=== PATIENT | female | born 1975 | race Caucasian/White ===

== ENCOUNTER → 2018-10-13 | Outpatient (CLI) | payer OTHER ==
[~2018-10-13] MED LIST: CIPRO500 MG PO; IOPAMIDOL 610MG/1ML 300 MG/ML VIAL IV ONE; MYRBETRIQ25 MG PO; NABUMETONE500 MG PO; PROGESTERONE100 MG PO; [UNRECOGNIZED DRUG - OTHER] PO
[2018-10-13 14:11] LABS: BASOPHILS # (AUTO) 0.1 (0.0-0.1); BASOPHILS % 0.5 % (0.0-1.0); EOSINOPHILS # (AUTO) 0.3 (0.0-0.4); EOSINOPHILS % 2.4 % (0.0-6.0); HEMATOCRIT 38.4 % (34.2-44.1); HEMOGLOBIN 12.6 g/dL (12.0-16.0); LYMPHOCYTES # (AUTO) 1.7 (1.0-3.2); LYMPHOCYTES % 15.3 % (18.0-39.1); MEAN CORPUSCULAR HEMOGLOBIN 28.3 pg (28-32); MEAN CORPUSCULAR HGB CONC 32.8 g/dL (31-35); MEAN CORPUSCULAR VOLUME 86.1 fL (81-99); MONOCYTES # (AUTO) 0.6 (0.2-0.8); MONOCYTES % 5.5 % (4.4-11.3); NEUTROPHILS # (AUTO) 8.4 (2.1-6.9); NEUTROPHILS % 75.9 % (38.7-80.0); PLATELET COUNT 296 x10e3/uL (140-360); RED BLOOD COUNT 4.46 x10e6/uL (3.6-5.1); RED CELL DISTRIBUTION WIDTH 13.9 % (11.7-14.4)
[2018-10-13 14:21] LABS: INR 0.98; PROTHROMBIN TIME 13.5 seconds (11.9-14.5)
--- NOTE | 2018-10-13 14:25 | Diagnostic Imaging Report ---
EXAMINATION: CT of the abdomen and pelvis without contrast. TECHNIQUE: Spiral CT images of the abdomen and pelvis were performed from the lung bases to the lesser trochanters. No intravenous contrast was given per renal stone protocol. Coronal and sagittal reformatted images were obtained. COMPARISON: None. CLINICAL HISTORY:History of right renal stones x20 years DISCUSSION: ABSENCE OF INTRAVENOUS CONTRAST DECREASES SENSITIVITY FOR DETECTION OF FOCAL LESIONS AND VASCULAR PATHOLOGY. ABDOMEN/PELVIS: LOWER THORAX: Left breast implant partially visualized. Subsegmental atelectasis in the dependent lower lobes left greater than right. HEPATOBILIARY:No focal hepatic lesions. No biliary ductal dilation. The gallbladder is normal. SPLEEN: No splenomegaly. PANCREAS: No focal masses or ductal dilatation. ADRENALS: No adrenal nodules. KIDNEYS/URETERS: Nonobstructing interpolar and lower pole calculi on the left, measuring up to 7 mm. Punctate nonobstructing right lower pole renal calculus. Mild right hydroureter without significant hydronephrosis secondary to a 4-5 mm distal ureteral calculus seen on series 3 image 151. Mild perinephric fat stranding (series 3 image 97). No gross renal mass lesion. PELVIC ORGANS/BLADDER: The urinary bladder is collapsed and poorly evaluated. The uterus is neutral in position and appears normal. No adnexal mass. PERITONEUM/RETROPERITONEUM: No ascites or pneumoperitoneum. LYMPH NODES: No pelvic sidewall, retroperitoneal, or mesenteric lymphadenopathy. VESSELS: Limited evaluation without intravenous contrast. The abdominal aorta is nonaneurysmal. GI TRACT: The large bowel shows no distention or wall thickening. The distal sigmoid colon and descending colon are collapsed and poorly evaluated. The appendix is normal. There is no small bowel dilatation to suggest obstruction. BONES AND SOFT TISSUES: No osseous destructive lesions. No focal soft tissue abnormalities. IMPRESSION: 4-5 mm distal right ureteral calculus results in mild hydroureter and perinephric inflammation but no significant hydronephrosis. Bilateral nonobstructing renal calculi as above. Signed by: Dr. Dileep Adame M.D. on 10/13/2018 2:22 PM
[2018-10-13 14:28] LABS: ANION GAP 12.5 mmol/L (8-16); BLOOD UREA NITROGEN 8 mg/dL (7-26); BUN/CREATININE RATIO 10 (6-25); CALCIUM 9.9 mg/dL (8.4-10.2); CARBON DIOXIDE 26 mmol/L (22-29); CHLORIDE 99 mmol/L (98-107); CREATININE, SERUM 0.79 mg/dL (0.57-1.11); EST GLOMERULAR FILTRATION RATE > 60 ML/MIN (60-); GLUCOSE 111 mg/dL (74-118); POTASSIUM 3.5 mmol/L (3.5-5.1); SODIUM 134 mmol/L (136-145)
== END ==
LOC: CT 13:09
PROVIDERS: ATTEND Specialist
DX: R10.11 Right upper quadrant pain (principal); M54.5 Low back pain; N20.0 Calculus of kidney
CPT/HCPCS: 36415; 74176; 80048; 85025; 85610

== ENCOUNTER → 2018-10-14 | Day surgery (SDC) | payer OTHER ==
[~2018-10-14] MED LIST changes: +ACETAMINOPHEN 1000 MG/100 ML 100 ML IV ONE; +FENTANYL CITRATE/PF 100MCG/2 ML INJ ONE; -IOPAMIDOL 610MG/1ML 300 MG/ML VIAL IV ONE; +KETOROLAC TROMETHAMINE 30 MG/ML VIAL ONE; +LABETALOL HCL 5 MG/ML 20ML VIAL ONE; +LEVOFLOXACIN 500MG/D5W 100ML 100 ML IV ONE; +LIDOCAINE HCL 2% LOCAL INJ 5 ML SDV VIAL INJ ONE; +METOCLOPRAMIDE HCL 10 MG/2ML VIAL ONE; +ONDANSETRON HCL INJ 2MG/ML 2ML 2 MG/ML VIAL ONE; +PROMETHAZINE HCL (IM) 25 MG/ML VIAL ONE; +PROPOFOL IV EMULSION 10 MG/ML 20 ML VIAL ONE; +SEVOFLURANE INHAL SOLN 250 ML PEN BTL ONE
--- OUTSIDE RECORDS SUMMARY | 2018-10-14 09:05 | XMS REPORT ---
[facility] Address Unknown Phone Unavailable Care Team Providers Care Road Maker Name Role Phone Ayse ALONSO Unavailable Unavailable Problems This patient has no known problems. Allergies, Adverse Reactions, Alerts This patient has no known allergies or adverse reactions. Medications This patient has no known medications. Results Test Description Test Time Test Comments Text Results Atomic Results Result Comments CT ABDOMEN/PELVIS WO 2018-10-13 14:10:00 [place] [address] Patient Name: RONNIE JAIMES MR #: [id number] : 1975 Age/Sex: 43/F Req #: [id number] Adm Physician: Ordered by: TERRENCE ALONSO MD Report #: [id number] Location: CT Room/Bed: Procedure: [id number] CT/CT ABDOMEN/PELVIS WO Exam Date: 10/13/18 Exam Time: 1320 REPORT STATUS: Signed EXAMINATION: CT of the abdomen and pelvis without contrast. TECHNIQUE: Spiral CT images of the abdomen and pelvis were performed from the lung bases to the lesser trochanters. No intravenous contrast was given per renal stone protocol. Coronal and sagittal reformatted images were obtained. COMPARISON: None. CLINICAL HISTORY:History of right renal stones x20 years DISCUSSION: ABSENCE OF INTRAVENOUS CONTRAST DECREASES SENSITIVITY FOR DETECTION OF FOCAL LESIONS AND VASCULAR PATHOLOGY. ABDOMEN/PELVIS: LOWER THORAX: Left breast implant partially visualized. Subsegmental atelectasis in the dependent lower lobes left greater than right. HEPATOBILIARY:No focal hepatic lesions. No biliary ductal dilation. The gallbladder is normal. SPLEEN: No splenomegaly. PANCREAS: No focal masses or ductal dilatation. ADRENALS: No adrenal nodules. KIDNEYS/URETERS: Nonobstructing interpolar and lower pole calculi on the left, measuring up to 7 mm. Punctate nonobstructing right lower pole renal calculus. Mild right hydroureter without significant hydronephrosis secondary to a 4-5 mm distal ureteral calculus seen on series 3 image 151. Mild perinephric fat stranding (series 3 image 97). No gross renal mass lesion. PELVIC ORGANS/BLADDER: The urinary bladder is collapsed and poorly evaluated. The uterus is neutral in position and appears normal. No adnexal mass. PERITONEUM/RETROPERITONEUM: No ascites or pneumoperitoneum. LYMPH NODES: No pelvic sidewall, retroperitoneal, or mesenteric lymphadenopathy. VESSELS: Limited evaluation without intravenous contrast. The abdominal aorta is nonaneurysmal. GI TRACT: The large bowel shows no distention or wall thickening. The distal sigmoid colon and descending colon are collapsed and poorly evaluated. The appendix is normal. There is no small bowel dilatation to suggest obstruction. BONES AND SOFT TISSUES: No osseous destructive lesions. No focal soft tissue abnormalities. IMPRESSION: 4-5 mm distal right ureteral calculus results in mild hydroureter and perinephric inflammation but no significant hydronephrosis. Bilateral nonobstructing renal calculi as above. Signed by: Dr. Jem Pringle M.D. on 10/13/2018 2:22 PM Dictated By: JEM PRINGLE MD 1422 Transcribed By: KHLOE on 10/13/18 1422 COPY TO: TERRENCE ALONSO MD
--- OUTSIDE RECORDS SUMMARY | 2018-10-14 09:05 | XMS REPORT | Clinical Summary ---
Author Author [facility] Address Unknown Phone Unavailable Care Team Providers Care Food Mixer Repairer Name Role Phone Jerilyn Daugherty MD PCP Allergies Not on File Medications Not on file Active Problems Not on file Encounters Care Team Description Date Type Specialty Braxton Mera MD Uric acid nephrolithiasis (Primary Dx); Calculus of ureter 10/12/2018 Transcribe Access Orders after 10/13/2017 Social History Date Tobacco Use Types Packs/Day Years Used Never Assessed Sex Assigned at Date Recorded Not on file Industry Job Start Date Occupation Not on file Not on file Not on file Travel End Travel History Travel Start No recent travel history available. Last Filed Vital Signs Not on file Plan of Treatment Health Maintenance Due Date Last Done Comments CERVICAL CANCER SCREENING 1996 INFLUENZA VACCINE 12/31/2018 Procedures Comments Procedure Name Priority Date/Time Associated Diagnosis XR ABDOMEN 1 VW Routine 10/12/2018 Uric acid nephrolithiasis 1:54 PM CDT Calculus of ureter after 10/13/2017 Results * XR Abdomen 1 Vw (10/12/2018 1:54 PM CDT) Narrative Performed At EXAMINATION: XR ABDOMEN 1 VW [facility] INDICATION: N20.0 Calculus of kidney, N20.1 Calculus of ureter, n20.0n20.1 COMPARISON: 04/07/2017 IMPRESSION: Left interpolar calyceal calculus measuring up to 7 x 4 mm. This appears grossly similar. Linear calculus lower pole calyx left kidney measuring 9 x 2 mm, stable. Faint sand-like calcifications involving the lower pole shadow of the right kidney appears similar. No definite calculi along the course of either ureter. Nonspecific bowel gas pattern. 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 Procedure Note Hm Interface, Radiology Results Incoming - 10/12/2018 2:02 PM CDT EXAMINATION: XR ABDOMEN 1 VW INDICATION: N20.0 Calculus of kidney, N20.1 Calculus of ureter, n20.0 n20.1 COMPARISON: 04/07/2017 IMPRESSION: Left interpolar calyceal calculus measuring up to 7 x 4 mm. This appears grossly similar. Linear calculus lower pole calyx left kidney measuring 9 x 2 mm, stable. Faint sand-like calcifications involving the lower pole shadow of the right kidney appears similar. No definite calculi along the course of either ureter. Nonspecific bowel gas pattern. 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 [id number] Performing Organization Address City/State/Zipcode Phone Number [facility] [address] [place] [address] after 10/13/2017 Insurance Payer Benefit Subscriber ID Type Phone Address Plan / Group BCBS BCBS xxxxxxxxxxxxxxx PPO CHOICE PPO/[employer]ER YUEN PPO Advance Directives Patient has advance care planning documents on file. For more information, lance e contact: [address] [place] [address]
[2018-10-14 14:05] VITALS: BP 147/84
--- NOTE | 2018-10-15 05:52 | Operative Report ---
DATE OF PROCEDURE: 10/14/2018 SURGEON: Braxton Mera MD PREOPERATIVE DIAGNOSES: 1. Right lower pole calyceal calculi, conglomerate about 10 x 10 mm. 2. Right lower 3rd ureteral calculus 4 x 5 mm with hydronephrosis. 3. Left renal calculi x2, 7 x 7 and 8 x 8. POSTOPERATIVE DIAGNOSES: 1. Right lower pole calyceal calculi, conglomerate about 10 x 10 mm. 2. Right lower 3rd ureteral calculus 4 x 5 mm with hydronephrosis. 3. Left renal calculi x2, 7 x 7 and 8 x 8. 4. Large right upper pole calyceal calculus 12 x 15 mm. 5. Left lower 3rd ureteral calculus is actually 10 x about 7 or 8 mm on the cysto retrograde opposite to what the CT scan showed that it was about 4 x 5 mm. 6. Right upper pole calyceal calculus not seen on the CAT scan report. OPERATION: 1. Cystourethroscopy with right retrograde pyelogram. 2. Insertion of right double-J ureteral stent, 6-Moldovan by 28 cm. 3. Right lower pole calyceal calculus conglomerate. 4. Possible right mid or right pelvic calculus faintly seen. HEAD WORKER: Regis Welch MD ANESTHETIC: General. DESCRIPTION OF PROCEDURE: Ms. Sonja Al is a 43-year-old female, who is very well known to me with a history of kidney stones. She disappeared for about a year and a half to two and presented on Friday with acute pain. A CT scan was ordered and the CT scan seen this morning prior to surgery at the [facility] showed 4 x 5 mm calculus that was not seen on the KUB in the right lower 3rd ureter. It also showed conglomerate calculi on the right lower pole calyx and two left calculi. It also failed to show the calculus on the right upper pole calyx. This patient was placed on the table in the lithotomy position and was prepped and draped in a sterile manner after satisfactory anesthesia. A #23-Moldovan cystoscope was used and cystourethroscopy was performed and it was noted that the bladder was normal. Both ureteral orifices were seen and were within normal position, configuration, but no efflux on the right side. A #5 open-ended urethral catheter was passed through the working channel of the cystoscope through the right ureteral orifice and 5 mL of contrast material was injected. The retrograde showed the calculus in the right lower ureter to be about 10 x 6 or 7 mm with hydronephrosis proximal. Renal retrograde showed multiple conglomerate calculi in the lower pole calyx, but also showed a large calculus in the right upper pole calyx about 10 x 12 mm, which did not show on CT. This patient was placed on the table in the supine position. The lower pole calyceal calculus was then brought into position between F1 and F2 of the fluoroscopic monitor. Observation of the stone pulverization was done at 250 shocks. At 3000 shocks, it was felt that this whole conglomerate completely pulverized. At this point, the procedure was stopped because I could not give any more shocks. The patient tolerated the procedure well and was taken to the recovery room in satisfactory condition. Plans for this patient is to return to the office in one week and at that time, a CT scan will be performed with contrast to see all the stone and all the areas. DISCHARGE MEDICATIONS: 1. Cipro 500 mg one twice a day. 2. Ultracet tablet one every 6 hours p.r.n. and was given 60. 3. Myrbetriq 25 mg once daily for one month. 4. Zofran 4 mg one every 8 hours p.r.n. and was given 30. She is to return to the office in one week for CT scan with contrast material. Braxton Mera MD MA/CARLOTA /[id number]
== END | disposition home or self-care (01) ==
LOC: OR 09:02
PROVIDERS: ATTEND Specialist
DX: N13.2 Hydronephrosis with renal and ureteral calculous obstruction (principal); M48.00 Spinal stenosis, site unspecified; E66.01 Morbid (severe) obesity due to excess calories; E03.9 Hypothyroidism, unspecified; F41.9 Anxiety disorder, unspecified; Z88.6 Allergy status to analgesic agent; Z88.8 Allergy status to other drugs, medicaments and biological substances; Z87.891 Personal history of nicotine dependence
CPT/HCPCS: 50590; 52332; 81025; C1758; C2617; J0131; J1885; J1956; J2001; J2405; J2550; J2704; J2765; J3490